=== PATIENT | male | born 1995 | race Caucasian/White ===

== ENCOUNTER 2017-12-03 18:30 | Emergency (ER) | payer OTHER ==
[2017-12-03 18:43] VITALS: BP 138/65; PULSE 77; TEMP 98.8; BMI 36.9
--- NOTE | 2017-12-03 18:43 | PDOC ---
Rapid Medical Evaluation Time Seen by Provider: 12/03/17 18:39 Medical Evaluation: 12/03/17 18:39 I have performed a brief in-person evaluation of this patient. The patient presents with a chief complaint of: body aches/sore throat/cough/ phlegm, +diarrhea x 4 days, 1-2 episodes each day, vomiting 2-3x daily, denies fever, chills, has taken Nyquil Pertinent physical exam findings: well appearing, lungs ctab I have ordered the following: nothing The patient will proceed to the ED for further evaluation. Discharge Disposition - Diagnosis Cough - Referrals - Patient Instructions - Post Discharge Activity
--- NOTE | 2017-12-03 19:28 | PDOC ---
History of Present Illness - General Chief Complaint: Cold Symptoms Stated Complaint: body aches, cough Time Seen by Provider: 12/03/17 18:39 History Source: Patient - History of Present Illness Timing/Duration: reports: other Associated Symptoms: reports: cough. denies: chest pain/soreness, fever/chills , headache, muscle aches, shortness of breath Past History - Past Medical History Allergies/Adverse Reactions: Allergies Allergy/AdvReac Type Severity Reaction Status Date / Time No Known Allergies Allergy Verified 12/03/17 18:43 Home Medications: Ambulatory Orders Ondansetron HCl [Zofran] 4 mg PO Q8H #12 tablet 12/03/17 COPD: No - Suicide/Smoking/Psychosocial Hx Smoking History: Never smoked Information on smoking cessation initiated: No Hx Alcohol Use: No Drug/Substance Use Hx: No Substance Use Type: None Review of Systems - Review of Systems Constitutional: No: Chills, Fever Respiratory: Yes: Cough. No: Shortness of Breath Cardiac (ROS): No: Chest Pain, Lightheadedness ABD/GI: Yes: Diarrhea, Nausea, Vomiting. No: Abdominal cramping *Physical Exam - Vital Signs Last Vital Signs Temp Pulse Resp BP Pulse Ox 98.8 F 77 18 138/65 98 12/03/17 18:40 12/03/17 18:40 12/03/17 18:40 12/03/17 18:40 12/03/17 18:40 - Physical Exam General Appearance: Yes: Appropriately Dressed. No: Apparent Distress HEENT: positive: Normal ENT Inspection, Normal Voice. negative: Scleral Icterus (R), Scleral Icterus (L) Neck: positive: Supple Respiratory/Chest: positive: Lungs Clear, Normal Breath Sounds. negative: Respiratory Distress Cardiovascular: positive: Regular Rate, S1, S2 Gastrointestinal/Abdominal: positive: Soft. negative: Tender Integumentary: positive: Dry, Warm Neurologic: positive: Fully Oriented, Alert, Normal Mood/Affect Medical Decision Making - Medical Decision Making 12/03/17 19:25 22-year-old male, no significant history here with nausea, vomiting, diarrhea with cough x several days. No fever, chills, or abdominal pain. Tolerating po for the most part. No known sick contacts or recent travel. Patient well- appearing and stable with unremarkable exam. Most likely viral syndrome. DC with supportive treatment. *DC/Admit/Observation/Transfer Diagnosis at time of Disposition: Viral syndrome - Discharge Dispostion Disposition: HOME Condition at time of disposition: Good - Prescriptions Prescriptions: Ondansetron HCl [Zofran] 4 mg PO Q8H #12 tablet - Referrals - Patient Instructions Printed Discharge Instructions: DI for Viral Syndrome Additional Instructions: Rest, drink plenty of fluids and take medications as prescribed Please follow-up with your doctor as needed - Post Discharge Activity Forms/Work/School Notes: Back to Work
== END 2017-12-03 19:36 | disposition home or self-care (01) ==
LOC: JERFT 18:30
DX: B34.9 Viral infection, unspecified (principal)
CPT/HCPCS: 99281-25

== ENCOUNTER 2017-12-09 13:01 | Emergency (ER) | payer OTHER ==
[2017-12-09 13:05] VITALS: BP 131/67; PULSE 76; TEMP 97.6; BMI 35.4
--- NOTE | 2017-12-09 13:44 | PDOC ---
History of Present Illness - General Chief Complaint: Cold Symptoms Stated Complaint: COLD SYMPTOMS Time Seen by Provider: 12/09/17 13:10 History Source: Patient Exam Limitations: No Limitations - History of Present Illness Initial Comments: CHIEF COMPLAINT: 22 y/o afebrile male with no significant PMH c/o cough, sore throat and feeling "feverish" at night x 1 week. HISTORY OF PRESENT ILLNESS: The patient was seen here 6 days ago, diagnosed with viral syndrome and discharged with zofran. he states he has not been vomiting. He states his cough and sore throat have continued. He has not taken a temperature at home and is afebrile in the ER. He denies chills, BRAGG, neck pain, runny nose, earache, n/v/d, CP, SOB, hemoptysis, abd pain, back pain. He has not taken anything such as motrin or tylenol for pain. Vital signs on arrival are within normal limits. REVIEW OF SYSTEMS: GENERAL/CONSTITUTIONAL: Subjective fever HEAD, EYES, EARS, NOSE AND THROAT: No runny nose. No ear pain or discharge. + sore throat. CARDIOVASCULAR: No chest pain or shortness of breath. RESPIRATORY: +cough. No wheezing, or hemoptysis. GASTROINTESTINAL: No abd pain, nausea, vomiting, diarrhea. GENITOURINARY: No dysuria, frequency, or change in urination. MUSCULOSKELETAL: No joint or muscle swelling or pain. No neck or back pain. SKIN: No rash or easy bruising. NEUROLOGIC: No headache, vertigo, loss of consciousness, or loss of sensation. PHYSICAL EXAM: GENERAL: The patient is awake, alert, and fully oriented, in no acute distress. He is well appearing, ambulatory, in NAD or obvious discomfort. Very sporadic dry cough. HEAD: Normal with no signs of trauma. No TTP of sinuses. NECK: No lymphadenopathy. ENT: Pupils equal, round and reactive to light, extraocular movements intact, sclera anicteric, conjunctiva clear. No tonsilar erythema, edema, exudate. Uvula midline. No soft/hard palate deformities. NO petechia LUNGS: Clear to auscultation bilaterally. Normal excursion. No respiratory distress or use of accessory muscles. CV: RRR, S1/S2, no MRG. Cap refill < 2 sec. ABDOMEN: Soft, non-distended, non-tender even to deep palpation, no hepatomegaly or splenomegaly, no masses. EXTREMITIES: Normal range of motion, no edema. NEUROLOGICAL: Normal speech, normal gait. CN II-XII grossly intact. PSYCH: Normal mood, normal affect. SKIN: Warm, dry, normal turgor, no rashes or lesions noted. Past History - Past Medical History Allergies/Adverse Reactions: Allergies Allergy/AdvReac Type Severity Reaction Status Date / Time No Known Allergies Allergy Verified 12/09/17 13:03 Home Medications: Ambulatory Orders NK [No Known Home Medication] 12/09/17 COPD: No - Suicide/Smoking/Psychosocial Hx Smoking History: Never smoked Information on smoking cessation initiated: No Hx Alcohol Use: No Drug/Substance Use Hx: No Substance Use Type: None *Physical Exam - Vital Signs Last Vital Signs Temp Pulse Resp BP Pulse Ox 97.6 F 76 18 131/67 100 12/09/17 13:04 12/09/17 13:04 12/09/17 13:04 12/09/17 13:04 12/09/17 13:04 Medical Decision Making - Medical Decision Making A/P: 22 y/o afebrile male with unremarkable physical exam and c/o dry cough and sore throat x 1 week. Suspect allergy symptoms. Will give IM toradol and supportive care instructions. Suggested he f/u with his PCP if symptoms persist. The patient verbalizes understanding of all instructions, has no further questions and is awaiting discharge. *DC/Admit/Observation/Transfer Diagnosis at time of Disposition: Cough, Sore throat Seasonal allergies Qualifiers: Allergic rhinitis trigger: unspecified Qualified Code(s): J30.2 - Other seasonal allergic rhinitis - Discharge Dispostion Disposition: HOME Condition at time of disposition: Good - Referrals - Patient Instructions Printed Discharge Instructions: DI for Cough -- Adult, Sore Throat Additional Instructions: Discharge Instructions: -You have allergy symptoms -Please take over the counter Claritin OR Zyrtec daily until symptoms improve -Take 600mg of over the counter Ibuprofen every 6 hours with food -Follow up with your doctor within 1 week -Return to the ER with any worsening or concerning symptoms. - Post Discharge Activity Forms/Work/School Notes: Back to Work
[2017-12-09] MEDS ORDERED: KETOROLAC TROMETHAMINE 60 MG/2 ML VIAL IM ONE (13:49)
[2017-12-09] MEDS ORDERED: KETOROLAC TROMETHAMINE 60 MG/2 ML VIAL ONE (13:51)
== END 2017-12-09 13:57 | disposition home or self-care (01) ==
LOC: JERFT 13:01
PROC: 3E0233Z Introduction of Anti-inflammatory into Muscle, Percutaneous Approach (ICD-10-PCS; principal; 2017-12-09)
DX: J30.2 Other seasonal allergic rhinitis (principal)
CPT/HCPCS: 96372; 99281-25

== ENCOUNTER 2018-08-02 07:31 | Emergency (ER) | payer SELFPAY ==
[2018-08-02 07:59] VITALS: BP 119/60; PULSE 72; TEMP 98.5; BMI 38.0
[2018-08-02] MEDS ORDERED: ALBUTEROL SO4 2.5/IPRATROPIUM 0.5 INH SOL 3 ML VIAL.NEB. NEB ONE ×2 (08:23→08:28)
--- NOTE | 2018-08-02 08:23 | PDOC ---
History of Present Illness - General Chief Complaint: Sore Throat Stated Complaint: COUGH/SORE THROAT Time Seen by Provider: 08/02/18 08:12 History Source: Patient Exam Limitations: No Limitations - History of Present Illness Initial Comments: 08/02/18 08:05 Patient came for evaluation of persistent and worsening cough, some wheezing, and runny nose. 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 Denies fever, denies purulent phlegm or nasal drainage. Timing/Duration: reports: getting worse, intermittent Severity: reports: mild Associated Symptoms: reports: cough, nasal congestion, nasal drainage, wheezing Past History - Travel Traveled outside of the country in the last 30 days: No Close contact w/someone who was outside of country & ill: No - Past Medical History Allergies/Adverse Reactions: Allergies Allergy/AdvReac Type Severity Reaction Status Date / Time No Known Allergies Allergy Verified 08/02/18 07:52 Home Medications: Ambulatory Orders NK [No Known Home Medication] 12/09/17 COPD: No - Suicide/Smoking/Psychosocial Hx Smoking History: Never smoked Hx Alcohol Use: No Drug/Substance Use Hx: No Substance Use Type: None Review of Systems - Review of Systems Able to Perform ROS?: Yes Is the patient limited Divehi proficient: Yes Constitutional: Yes: Symptoms Reported, See HPI, Malaise. No: Fever HEENTM: Yes: See HPI, Nose Congestion, Difficulty Swallowing. No: Symptoms Reported Respiratory: Yes: Symptoms reported, See HPI. No: Cough, Wheezing Integumentary: No: Symptoms Reported All Other Systems: Reviewed and Negative *Physical Exam - Vital Signs Last Vital Signs Temp Pulse Resp BP Pulse Ox 98.5 F 72 16 119/60 96 08/02/18 07:54 08/02/18 07:54 08/02/18 07:54 08/02/18 07:54 08/02/18 07:54 - Physical Exam General Appearance: Yes: Nourished, Appropriately Dressed, Apparent Distress, Mild Distress HEENT: positive: RAFIA, Normal ENT Inspection, TMs Normal, Pharynx Normal, Rhinorrhea Neck: positive: Supple, Lymphadenopathy (R), Lymphadenopathy (L). negative: Tender Respiratory/Chest: positive: Lungs Clear, Decreased Breath Sounds, Wheezing. negative: Normal Breath Sounds Gastrointestinal/Abdominal: positive: Soft. 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, Fully Oriented, Alert, Normal Mood/ Affect, Normal Response, Motor Strength 5/5 Moderate Sedation - Procedure Monitoring Vital Signs: Procedure Monitoring Vital Signs Temperature 98.5 F 08/02/18 07:54 Pulse Rate 72 08/02/18 07:54 Respiratory Rate 16 08/02/18 07:54 Blood Pressure 119/60 08/02/18 07:54 O2 Sat by Pulse Oximetry (%) 96 08/02/18 07:54 Progress Note - Progress Note Progress Note: Much improved, breath sounds much clearer, wheezing resolved./ no evidence of bacterial infection we'll treat symptoms *DC/Admit/Observation/Transfer Diagnosis at time of Disposition: URI, acute - Discharge Dispostion Disposition: HOME Condition at time of disposition: Stable Decision to Admit order: No - Referrals - Patient Instructions Printed Discharge Instructions: DI for Viral Upper Respiratory Infection -- Adult Additional Instructions: Rest, drink lots of fluids: Teas, water, soups, Pedialyte Saltwater gargles Steamy showers/seem to face break up mucus Avoid contact with others until fevers and cough resolved Lots of handwashing and good hygiene Continue [id number] medications for symptomatic relief Tylenol or Motrin for fever and pain Continue albuterol inhaler every 4-6 hours for the next 2 days then as needed for continued cough Followup with private physician in one to 2 days Return to emergency department / pediatric hospital for worsened symptoms, fevers, dehydration - Post Discharge Activity Forms/Work/School Notes: Back to Work
[2018-08-02] MEDS ORDERED: DEXAMETHASONE SOD PHOSPHATE 10 MG/1 ML VIAL IM ONE (08:25)
[2018-08-02] MEDS ORDERED: DEXAMETHASONE SOD PHOSPHATE 10 MG/1 ML VIAL ONE (08:28)
== END 2018-08-02 09:10 | disposition home or self-care (01) ==
LOC: JERFT 07:31 → JER 07:31 → JERFT 09:10
PROC: 3E0233Z Introduction of Anti-inflammatory into Muscle, Percutaneous Approach (ICD-10-PCS; principal; 2018-08-02)
PROC: 3E0F7GC Introduction of Other Therapeutic Substance into Respiratory Tract, Via Natural or Artificial Opening (ICD-10-PCS; 2018-08-02)
DX: J06.9 Acute upper respiratory infection, unspecified (principal); B97.89 Other viral agents as the cause of diseases classified elsewhere
CPT/HCPCS: 99281-25; J1100

== ENCOUNTER 2019-08-23 09:30 | Emergency (ER) | payer OTHER ==
[2019-08-23 09:35] VITALS: BP 107/64; PULSE 75; TEMP 98.3; BMI 37.6
--- NOTE | 2019-08-23 10:33 | PDOC ---
History of Present Illness - General Chief Complaint: Respiratory Stated Complaint: COLD SYMPTOMS Time Seen by Provider: 08/23/19 09:49 - History of Present Illness Initial Comments: 08/23/19 10:28 CHIEF COMPLAINT: cough HISTORY OF PRESENT ILLNESS: 24 yo M with no PMH presents to fast track with sore throat, cough, ear pressure/clogging and headache x 3 days. Denies fever, vomiting, diarrhea. No recent travel or sick contacts. PAST MEDICAL HISTORY: Denies past medical history FAMILY HISTORY: Denies SOCIAL HISTORY: Denies tobacco, alcohol, illicit drug use. SURGICAL HISTORY: Denies ALLERGIES: No known drug allergies REVIEW OF SYSTEMS General/Constitutional: Denies fever or chills. Denies weakness, weight change. HEENT: Denies change in vision. Denies ear pain or discharge. Denies sore throat. Cardiovascular: Denies chest pain or shortness of breath. Respiratory: Denies cough, wheezing, or hemoptysis. Gastrointestinal: Denies nausea, vomiting, diarrhea or constipation. Denies rectal bleeding. Genitourinary: Denies dysuria, frequency, or change in urination. Musculoskeletal: Denies joint or muscle swelling or pain. Denies neck or back pain. Skin and breasts: Denies rash or easy bruising. Neurologic: Headdache. Denies vertigo, loss of consciousness, or loss of sensation. Psychiatric: Denies depression or anxiety. PHYSICAL EXAM General Appearance: Well-appearing, appropriately dressed. No apparent distress , no intoxication. HEENT: Swollen turbinates, post nasal drip aprpeciated. EOMI, PERRLA, normal ENT inspection, normal voice, TMs normal, pharynx normal. No conjunctival pallor. No photophobia, scleral icterus. Neck: Supple. Trachea midline. No tenderness, rigidity, carotid bruit, stridor , lymphadenopathy, or thyromegaly. Respiratory/Chest: Lungs CTAB. No shortness of breath, chest tenderness, respiratory distress, accessory muscle use. No crackles, rales, rhonchi, stridor , wheezing, dullness Cardiovascular: RRR. S1, S2. No JVD, murmur, bradycardia, tachycardia. Vascular Pulses: Dorsalis-Pedis (R): 2+, Dorsalis-Pedis (L): 2+ Gastrointestinal/Abdominal: Normal bowel sounds. Abdomen soft, non-distended. No tenderness or rebound tenderness. No organomegaly, pulsatile mass, guarding , hernia, hepatomegaly, splenomegaly. Lymphatic: No adenopathy, tenderness. Musculoskeletal/Extremities: Normal inspection. FROM of all extremities, normal capillary refill. Pelvis Stable. No CVA tenderness. No tenderness to extremities, pedal edema, swelling, erythema or deformity. Integumentary: Appropriate color, dry, warm. No cyanosis, erythema, jaundice or rash Neurologic: subcontract manager II-XII intact. Fully oriented, alert. Appropriate mood/affect. Motor strength 5/5. No appreciable EOM palsy, facial droop or sensory deficit. Past History - Past Medical History Allergies/Adverse Reactions: Allergies Allergy/AdvReac Type Severity Reaction Status Date / Time No Known Allergies Allergy Verified 08/23/19 09:35 Home Medications: Ambulatory Orders Benzonatate [Tessalon Pearls -] 100 mg PO TID #30 capsule 08/23/19 Guaifenesin [Robitussin] 10 ml PO Q6H PRN 08/23/19 Pseudoephedrine HCl [Pseudoephedrine ER] 120 mg PO BID #20 tablet.er 08/23/19 COPD: No - Psycho Social/Smoking Cessation Hx Smoking History: Never smoked Hx Alcohol Use: No Drug/Substance Use Hx: No Substance Use Type: None *Physical Exam - Vital Signs Last Vital Signs Temp Pulse Resp BP Pulse Ox 98.3 F 75 18 107/64 99 08/23/19 09:32 08/23/19 09:32 08/23/19 09:32 08/23/19 09:32 08/23/19 09:32 Medical Decision Making - Medical Decision Making 08/23/19 10:38 24 yo M with no PMH presents to fast track with uri symptoms x 3 days. radha franco Advised patient to take medication as prescribed and follow up with PCP within a week. Advised patient of signs and symptoms for return to ED. Patient verbalized understanding and agrees to plan. Discharge - Discharge Information Problems reviewed: Yes Clinical Impression/Diagnosis: Viral upper respiratory infection Condition: Stable Disposition: HOME - Admission No - Additional Discharge Information Prescriptions: Benzonatate [Tessalon Pearls -] 100 mg PO TID #30 capsule Pseudoephedrine HCl [Pseudoephedrine ER] 120 mg PO BID #20 tablet.er - Follow up/Referral - Patient Discharge Instructions Patient Printed Discharge Instructions: DI for Viral Upper Respiratory Infection -- Adult - Post Discharge Activity
== END 2019-08-23 10:41 | disposition home or self-care (01) ==
LOC: JERFT 09:30
DX: J06.9 Acute upper respiratory infection, unspecified (principal); B97.89 Other viral agents as the cause of diseases classified elsewhere
CPT/HCPCS: 99281-25

== ENCOUNTER 2021-12-09 06:38 | Emergency (ER) | payer OTHER ==
[2021-12-09 06:46] VITALS: BMI 37.8
[2021-12-09 06:55] VITALS: BP 130/75; PULSE 105; TEMP 99.2
[2021-12-09] MEDS ORDERED: ACETAMINOPHEN 500 MG TABLET (FP) PO ONE (07:21)
[2021-12-09] MEDS ORDERED: ACETAMINOPHEN 500 MG TABLET (FP) ONE (07:27)
[2021-12-10 23:11] LABS: SARS-CoV-2 NAA Not Detected (Not Detected)
== END 2021-12-09 07:57 | disposition home or self-care (01) ==
LOC: FER 06:38
DX: J06.9 Acute upper respiratory infection, unspecified (principal)
CPT/HCPCS: 87804; 99283-25; C9803-CS; U0003; U0005

== ENCOUNTER 2022-04-10 08:37 | Emergency (ER) | payer SELFPAY ==
[2022-04-10 08:41] VITALS: BP 122/76; PULSE 60; RESP 18; TEMP 97.6; BMI 30.4
[2022-04-10] MEDS ORDERED: KETOROLAC TROMETHAMINE 30 MG/1 ML VIAL IM ONE (09:41)
[2022-04-10] MEDS ORDERED: KETOROLAC TROMETHAMINE 30 MG/1 ML VIAL ONE (10:11)
== END 2022-04-10 10:54 | disposition home or self-care (01) ==
LOC: JER 08:37
PROC: 3E0233Z Introduction of Anti-inflammatory into Muscle, Percutaneous Approach (ICD-10-PCS; principal; 2022-04-10)
DX: M54.50 Low back pain, unspecified (principal)
CPT/HCPCS: 99283-25

== ENCOUNTER 2023-06-04 09:27 | Emergency (ER) | payer OTHER ==
[2023-06-04 09:31] VITALS: BP 131/83; PULSE 75; RESP 20; TEMP 97.9; BMI 34.9
[2023-06-04] MEDS ORDERED: PSEUDOEPHEDRINE HCL 30 MG TABLET PO ONE (09:57)
[2023-06-04] MEDS ORDERED: guaiFENesin 600 MG TABLET.ER (FP) PO ONE ×2 (09:57→11:11)
== END 2023-06-04 11:16 | disposition home or self-care (01) ==
LOC: JERFT 09:27
DX: R05.9 Cough, unspecified (principal); R09.81 Nasal congestion; J02.0 Streptococcal pharyngitis; R50.9 Fever, unspecified; J39.2 Other diseases of pharynx; Z20.822 Contact with and (suspected) exposure to COVID-19
CPT/HCPCS: 0241U-QW; 87651; 99283-25

== ENCOUNTER 2023-08-20 10:05 | Emergency (ER) | payer OTHER ==
[2023-08-20 10:25] VITALS: BP 121/73; PULSE 66; RESP 15; TEMP 98.9; BMI 36.0
[2023-08-20] MEDS ORDERED: ACETAMINOPHEN 325 MG TABLET (FP) PO ONE (10:38)
[2023-08-20] MEDS ORDERED: IBUPROFEN 400 MG TABLET (FP) PO ONE ×2 (10:39→10:48)
[2023-08-20] MEDS ORDERED: ACETAMINOPHEN 325 MG TABLET (FP) ONE (10:47)
== END 2023-08-20 11:12 | disposition home or self-care (01) ==
LOC: JERFT 10:05
DX: R09.81 Nasal congestion (principal); B34.9 Viral infection, unspecified; J06.9 Acute upper respiratory infection, unspecified; Z20.822 Contact with and (suspected) exposure to COVID-19
CPT/HCPCS: 0241U-QW; 99283-25